=== PATIENT | female | born 1975 | race American Indian/Alaskan Native ===

== ENCOUNTER 2016-11-04 11:27 | Emergency (ER) | payer MEDICAID, OTHER ==
[2016-11-04 11:41] VITALS: BP 129/60
[2016-11-04] MEDS ORDERED: Ketorolac 30 MG/ML SDV IM ONE (12:29)
[2016-11-04] MEDS ORDERED: Cyclobenzaprine 10 MG Tab PO ONE (12:29)
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
== END 2016-11-04 12:49 | disposition home or self-care (01) ==
LOC: DL.ED 11:27
DX: S39.012A Strain of muscle, fascia and tendon of lower back, initial encounter (principal); F17.210 Nicotine dependence, cigarettes, uncomplicated; E66.9 Obesity, unspecified; F32.9 Major depressive disorder, single episode, unspecified; Z98.890 Other specified postprocedural states; W10.8XXA Fall (on) (from) other stairs and steps, initial encounter; Z68.35 Body mass index [BMI] 35.0-35.9, adult
CPT/HCPCS: 96372; 99283; A9270; J1885

== ENCOUNTER 2017-02-10 14:29 | Emergency (ER) | payer MEDICAID, OTHER ==
[2017-02-10 15:13] VITALS: BP 103/56
--- NOTE | 2017-02-10 15:18 | EDM.PDOC ---
ED HPI GENERAL MEDICAL PROBLEM - General Chief Complaint: Lower Extremity Injury/Pain Stated Complaint: TOES ARE INFECTED, [id number] Time Seen by Provider: 02/10/17 15:18 Source of Information: Reports: Patient, RN, RN Notes Reviewed History Limitations: Reports: No Limitations - History of Present Illness INITIAL COMMENTS - FREE TEXT/NARRATIVE: to ER with complaint of painfully possibly infected toes. She states the left pinky toe had an ingrown toenail which has become painful, swollen, and red. No drainage. Right great and 2nd toe had a drawer fall on them a few days ago. Patient states the great toe has bled but not today. 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 Location: Reports: Lower Extremity, Left Quality: Reports: Ache Severity: Mild Improves with: Reports: None Worsens with: Reports: None Associated Symptoms: Reports: No Other Symptoms Right 1-Hallux Pain Score (Numeric/FACES): 7 - Related Data Allergies Allergy/AdvReac Type Severity Reaction Status Date / Time No Known Allergies Allergy Verified 04/18/16 17:01 Home Meds: Home Meds Control Pill 1 tab PO ASDIRECTED 06/10/14 [History] Past Medical History - Past Health History Medical/Surgical History: Denies Medical/Surgical History HEENT History: Reports: None Cardiovascular History: Reports: None Respiratory History: Reports: None Gastrointestinal History: Reports: None Genitourinary History: Reports: None 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 On oxycodone for back and chest pain Psychiatric History: Reports: None, Bipolar Endocrine/Metabolic History: Reports: Obesity/BMI 30+ Hematologic History: Reports: None Immunologic History: Reports: None Oncologic (Cancer) History: Reports: None Dermatologic History: Reports: None - Infectious Disease History Infectious Disease History: Reports: Chicken Pox - Past Surgical History Head Surgeries/Procedures: Reports: None Musculoskeletal Surgical History: Reports: Other (See Below) Other Musculoskeletal Surgeries/Procedures:: foot surgery Social & Family History - Family History Family Medical History: Noncontributory - Tobacco Use Smoking Status *Q: Current Some Day Smoker Years of Tobacco use: 10 Packs/Tins Daily: 0.1 Second Hand Smoke Exposure: Yes - Caffeine Use Caffeine Use: Reports: Coffee - Alcohol Use Days Per Week of Alcohol Use: 0 - Recreational Drug Use Recreational Drug Use: No - Sexual History Sexual History: Reports: Sexually Active - Living Situation & Occupation Living situation: Reports: , with Family Review of Systems - Review of Systems Review Of Systems: ROS reveals no pertinent complaints other than HPI. ED EXAM, GENERAL - Physical Exam Exam: See Below Exam Limited By: No Limitations General Appearance: Alert, WD/WN, No Apparent Distress Eye Exam: Bilateral Eye: Normal Inspection Ears: Normal External Exam, Normal Canal, Hearing Grossly Normal, Normal TMs Nose: Normal Inspection, Normal Mucosa, No Blood Throat/Mouth: Normal Inspection, Normal Lips, Normal Teeth, Normal Gums, Normal Oropharynx, Normal Voice, No Airway Compromise Head: Atraumatic, Normocephalic Neck: Normal Inspection, Supple, Non-Tender, Full Range of Motion Respiratory/Chest: No Respiratory Distress, Lungs Clear, Normal Breath Sounds, No Accessory Muscle Use, Chest Non-Tender Cardiovascular: Normal Peripheral Pulses, Regular Rate, Rhythm, No Edema, No Gallop, No JVD, No Murmur, No Rub GI/Abdominal: Normal Bowel Sounds, Soft, Non-Tender, No Organomegaly, No Distention, No Abnormal Bruit, No Mass (Female) Exam: Deferred Rectal (Female) Exam: Deferred Back Exam: Normal Inspection, Full Range of Motion, NT Extremities: Normal Inspection, Normal Range of Motion, Non-Tender, Normal Capillary Refill, No Pedal Edema Neurological: Alert, Oriented, CN II-XII Intact, Normal Cognition, Normal Gait, Normal Reflexes, No Motor/Sensory Deficits Psychiatric: Normal Affect, Normal Mood Skin Exam: Other (left 5th toe) Course - Vital Signs Last Recorded V/S: Last Vital Signs Temp 97.6 F 02/10/17 15:12 Pulse 76 02/10/17 15:12 Resp 16 02/10/17 15:12 BP 103/56 L 02/10/17 15:12 Pulse Ox 98 02/10/17 15:12 Departure - Departure Time of Disposition: 15:38 Disposition: Home, Self-Care 01 Condition: Good Clinical Impression: Ingrowing toenail with infection, Infection of toenail - Discharge Information Instructions: Ingrown Toenail Forms: ED Department Discharge Additional Instructions: RX: Cephalexin 500mg. RX: Bactroban ointment. Change dressing tid. Call for podiatry appointment with Dr. Blandon.
== END 2017-02-10 15:49 | disposition home or self-care (01) ==
LOC: DL.ED 14:29
DX: L60.0 Ingrowing nail (principal); L08.9 Local infection of the skin and subcutaneous tissue, unspecified; F31.9 Bipolar disorder, unspecified; E66.9 Obesity, unspecified; F17.210 Nicotine dependence, cigarettes, uncomplicated; Z98.890 Other specified postprocedural states; Z68.34 Body mass index [BMI] 34.0-34.9, adult
CPT/HCPCS: 99283

== ENCOUNTER 2017-02-23 17:46 | Emergency (ER) | payer OTHER ==
[2017-02-23 18:47] VITALS: BP 126/62
[2017-02-23] MEDS ORDERED: Acetaminophen/HYDROcodone 325-10 MG Tab PO ONE (19:48)
--- NOTE | 2017-02-23 19:51 | EDM.PDOC ---
ED HPI GENERAL MEDICAL PROBLEM - General Chief Complaint: Lower Extremity Injury/Pain Stated Complaint: INJURED TOE Time Seen by Provider: 02/23/17 19:49 Source of Information: Reports: Patient History Limitations: Reports: No Limitations - History of Present Illness INITIAL COMMENTS - FREE TEXT/NARRATIVE: toe was healing well after ABX then child jumped onto it accidentally few days ago. looks worse. 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 On oxycodone for back and chest pain Psychiatric History: Reports: None, Bipolar Endocrine/Metabolic History: Reports: Obesity/BMI 30+ Hematologic History: Reports: None Immunologic History: Reports: None Oncologic (Cancer) History: Reports: None Dermatologic History: Reports: None - Infectious Disease History Infectious Disease History: Reports: Chicken Pox - Past Surgical History Head Surgeries/Procedures: Reports: None Musculoskeletal Surgical History: Reports: Other (See Below) Other Musculoskeletal Surgeries/Procedures:: foot surgery Social & Family History - Family History Family Medical History: Noncontributory - Tobacco Use Smoking Status *Q: Current Some Day Smoker Years of Tobacco use: 10 Packs/Tins Daily: 1 Second Hand Smoke Exposure: Yes - Caffeine Use Caffeine Use: Reports: Coffee, Tea - Alcohol Use Days Per Week of Alcohol Use: 0 - Recreational Drug Use Recreational Drug Use: No - Sexual History Sexual History: Reports: Sexually Active - Living Situation & Occupation Living situation: Reports: , with Family Review of Systems - Review of Systems Review Of Systems: ROS reveals no pertinent complaints other than HPI. ED EXAM, GENERAL - Physical Exam Exam: See Below Exam Limited By: No Limitations General Appearance: Alert, WD/WN, Mild Distress, Other (pain) Ears: Hearing Grossly Normal Throat/Mouth: Normal Voice, No Airway Compromise Head: Atraumatic Neck: Non-Tender, Full Range of Motion Respiratory/Chest: No Respiratory Distress Cardiovascular: Regular Rate, Rhythm GI/Abdominal: Soft, Non-Tender Extremities: Other (right big toe swollen tender discoloured, NV wnl, gait limited to pain) Neurological: Alert, Oriented, Normal Cognition, No Motor/Sensory Deficits Psychiatric: Tearful Skin Exam: Warm, Dry, Normal Color Lymphatic: No Adenopathy Course - Vital Signs Last Recorded V/S: Last Vital Signs Temp 35.8 C 02/23/17 18:38 Pulse 70 02/23/17 18:38 Resp 17 02/23/17 18:38 BP 126/62 02/23/17 18:38 Pulse Ox 99 02/23/17 18:38 - Orders/Labs/Meds Meds: Medications Discontinued Medications Generic Name Dose Route Start Last Admin Trade Name Freq PRN Reason Stop Dose Admin Hydrocodone Bitart/Acetaminophen 1 tab 02/23/17 19:48 02/23/17 20:44 [place] 325-10 Mg PO 02/23/17 19:49 1 tab ONETIME ONE Administration - Re-Assessments/Exams Free Text/Narrative Re-Assessment/Exam: 02/23/17 21:47 results discussed with pt. Departure - Departure Time of Disposition: 21:47 Disposition: Home, Self-Care 01 Condition: Good Clinical Impression: Contusion of toe of right foot Qualifiers: Encounter type: initial encounter Toe: great toe Damage to nail status: without damage Qualified Code(s): S90.111A - Contusion of right great toe without damage to nail, initial encounter - Discharge Information Instructions: Foot Contusion, [id number] Forms: ED Department Discharge Additional Instructions: 1) elevate foot as much as possible 2) keep wound clean dry covered rx given; vicodin 5/325mg bid prn x 12
== END 2017-02-23 21:52 | disposition home or self-care (01) ==
LOC: DL.ED 17:46
DX: S90.111A Contusion of right great toe without damage to nail, initial encounter (principal); E66.9 Obesity, unspecified; F17.210 Nicotine dependence, cigarettes, uncomplicated; Z98.890 Other specified postprocedural states; Z68.34 Body mass index [BMI] 34.0-34.9, adult; W50.0XXA Accidental hit or strike by another person, initial encounter
CPT/HCPCS: 73660; 99283; A9270

== ENCOUNTER 2017-03-08 17:26 | Emergency (ER) | payer OTHER ==
[2017-03-08] MEDS ORDERED: Albuterol 6.7 GM Inhaler INH ONE ×2 (17:27→19:56)
[2017-03-08 18:22] VITALS: BP 125/54
--- NOTE | 2017-03-08 19:09 | EDM.PDOC ---
ED HPI GENERAL MEDICAL PROBLEM - General Chief Complaint: Respiratory Problem Stated Complaint: LUNGS CONGESTED AND FACE, [id number] Time Seen by Provider: 03/08/17 19:00 Source of Information: Reports: Patient History Limitations: Reports: No Limitations - History of Present Illness INITIAL COMMENTS - FREE TEXT/NARRATIVE: C/o cold sx, congestion and productive cough, sore throat onset Saturday night with runny nose. Notes no known fever. Benadryl and cough medicine at bedtime. Head Pain Score (Numeric/FACES): 3 - Related Data Allergies Allergy/AdvReac Type Severity Reaction Status Date / Time No Known Allergies Allergy Verified 03/08/17 18:16 Home Meds: Home Meds . 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 On oxycodone for back and chest pain Psychiatric History: Reports: None, Bipolar Endocrine/Metabolic History: Reports: Obesity/BMI 30+ Hematologic History: Reports: None Immunologic History: Reports: None Oncologic (Cancer) History: Reports: None Dermatologic History: Reports: None - Infectious Disease History Infectious Disease History: Reports: Chicken Pox - Past Surgical History Head Surgeries/Procedures: Reports: None Musculoskeletal Surgical History: Reports: Other (See Below) Other Musculoskeletal Surgeries/Procedures:: foot surgery, elbow surgery Social & Family History - Family History Family Medical History: Noncontributory - Tobacco Use Smoking Status *Q: Current Some Day Smoker Years of Tobacco use: 10 Packs/Tins Daily: 1 Second Hand Smoke Exposure: Yes - Caffeine Use Caffeine Use: Reports: Coffee, Tea - Alcohol Use Days Per Week of Alcohol Use: 0 - Recreational Drug Use Recreational Drug Use: No - Sexual History Sexual History: Reports: Sexually Active - Living Situation & Occupation Living situation: Reports: , with Family ED ROS GENERAL - Review of Systems Review Of Systems: ROS reveals no pertinent complaints other than HPI. ED EXAM, GENERAL - Physical Exam Exam: See Below Exam Limited By: No Limitations General Appearance: Alert, Mild Distress Eye Exam: Bilateral Eye: EOMI Ears: Normal External Exam, Normal TMs Nose: Other (maxillary sinus tenderness). No: Nasal Drainage Throat/Mouth: Other (mild pharyngeal erythema) Head: Atraumatic, Normocephalic, Sinus Tenderness Neck: Normal Inspection. No: Lymphadenopathy (L) (mild), Lymphadenopathy (R) Respiratory/Chest: No Respiratory Distress, Rhonchi (right), Wheezing Cardiovascular: Regular Rate, Rhythm GI/Abdominal: Soft Extremities: Normal Range of Motion Neurological: Alert, Oriented, Normal Cognition Skin Exam: Warm, Dry, Intact, Normal Color, No Rash Course - Vital Signs Last Recorded V/S: Last Vital Signs Temp 97.3 F 03/08/17 18:02 Pulse 84 03/08/17 18:02 Resp 16 03/08/17 18:02 BP 125/54 L 03/08/17 18:02 Pulse Ox 99 03/08/17 18:02 - Orders/Labs/Meds Meds: Medications Discontinued Medications Generic Name Dose Route Start Last Admin Trade Name Lucía PRN Reason Stop Dose Admin Albuterol Confirm 03/08/17 19:56 03/08/17 20:14 Proventil Hfa Administered 03/08/17 19:57 Not Given Dose 6.7 gm INH .STK-MED ONE Departure - Departure Time of Disposition: 19:51 Disposition: Home, Self-Care 01 Condition: Good Clinical Impression: Bronchitis - Discharge Information Instructions: Acute Bronchitis, [id number] Referrals: PCP,None [Primary Care Provider] - Forms: ED Department Discharge Additional Instructions: increase fluids tylenol or ibuprofen for discomfort OTC muccinex 600mg twice daily or robitussin per label instructions albuterol inhaler 2 puffs every 4 hours as needed for cough and wheezing
== END 2017-03-08 20:01 | disposition home or self-care (01) ==
LOC: DL.ED 17:26
DX: J40 Bronchitis, not specified as acute or chronic (principal); E66.9 Obesity, unspecified; F17.210 Nicotine dependence, cigarettes, uncomplicated
CPT/HCPCS: 71020; 87081; 87430; 99283; A9270-GY

== ENCOUNTER 2017-10-20 23:54 | Inpatient (IN) | payer MEDICAID, OTHER ==
[2017-10-21] MEDS ORDERED: Lactated Ringers 1,000 ML IV SCH ×2 (01:10→11:00)
[2017-10-21] MEDS ORDERED: Sodium Chloride 0.9% 10 ML Syringe FLUSH PRN ×2 (01:10→11:00)
[2017-10-21] MEDS ORDERED: Tranexamic Acid 1,000 MG in Sodium Chloride 0.9% 100 ML IV PRN ×5 (04:04→11:00)
[2017-10-21] MEDS ORDERED: Oxytocin/Normal Saline 30 UNIT/500 ML BAG IV SCH (04:15)
--- NOTE | 2017-10-21 08:04 | HP ---
PATIENT IDENTIFICATION: Tyra Connelly is a 42-year-old, G10, P8-1-0-9 intrauterine at 38 and 1/7 weeks complicated by gestational diabetes mellitus with questionable control, recently diagnosed gestational hypertension versus transient hypertension with history of shoulder dystocia x2, and history of with a clavicle fracture requests for primary low transverse with GBS positive status that presents with back pain and increased blood sugars. HISTORY OF PRESENT ILLNESS: The patient was admitted on 10/20/2017 with complaints of back pain. She describes back pain starting on Saturday evening, located in the lower back, described as constant in nature, severe enough that it has kept her awake at times. She is unsure if she has had contractions associated with this and she has the above history and after discussion has requested a primary low transverse , which could be warranted with patient having history of shoulder dystocia x2 and last infant with clavicle fracture. She also has a history of precipitous delivery and gestational diabetes mellitus not controlled with previous pregnancies. She has had limited care with what appears to be 4 total OB visits with [address] [facility] and 2 at [facility]. Records were called for and reviewed as below, and supplemented by patient history. ANTEPARTUM LABORATORY DATA: ABO blood type O positive. Negative antibody. Rubella immune. RPR nonreactive. Negative hepatitis B surface antigen. Hep C antibody recently positive 13 days ago, with a quant RNA being negative and hep C antibody being negative at [facility]. Negative HIV, GC, chlamydia within normal Pap, and hepatitis B surface antigen is negative. Rare BV on wet prep. GBS was positive earlier this month. OB HISTORY: 1. On 09/11/2013: A 37 and 2/7 weeks, delivered female, spontaneous vaginal delivery, weighing 4896 g, complicated by gestational diabetes mellitus, not controlled, induced to macrosomia and sugars with clavicle fracture noted per patient, precipitously delivered via spontaneous vaginal delivery by Dr. Schulz at [facility] in [place]. 2. On 07/24/2012: A 40 and 1/7 weeks female, delivered spontaneous vaginal delivery, weighing 4990 g complicated by positive THC and narcotics on urine drug screen. 3. In 2009: A 39 week, 3997 g female, delivered spontaneous vaginal delivery, shoulder dystocia, impaired glucose tolerance and THC use by Dr. Pederson. 4. In 2004: A 35 and 6/7 weeks male, delivered spontaneous vaginal delivery, weighing 3670 g. For that visit she came in the ER with back pain and delivered vaginally. 5. In 2003: A 39 and 1/7 weeks, delivered spontaneous vaginal delivery, 4160 g, female, GBS positive status. 6. In 2000: A 40 week female, spontaneous vaginal delivery, 3912 g. 7. In 1998: A 39 and 3/7 weeks, delivered male, spontaneous vaginal delivery weighing 4252 g with a first-degree posterior vaginal wall laceration. 8. In 1996: Delivered at 39 weeks, male, spontaneous vaginal delivery, weighing 3912 g with second-degree midline laceration by Dr. Escalante. 9. In 1994: A 40 weeks, delivered via vacuum-assisted vaginal delivery, female, 3997 g with fourth-degree laceration. ALLERGIES: None. MEDICATIONS: vitamins. PAST MEDICAL/PAST SURGICAL HISTORY: Remarkable for: 1. Hyperthyroidism in 2012 . TSH normal during this within the last month. 2. History elbow fracture in 1981. 3. Gestational diabetes mellitus. 4. Depression in 2000. 5. Degenerative disk disease diagnosed in 2013. 6. Cervical dysplasia with history of LEEP in the past. 7. History of panic attacks. 8. Obesity. 9. Vitamin D deficiency. PAST SURGICAL HISTORY: 1. LEEP in 2002. 2. Foot surgery. 3. Bilateral bunion surgery. 4. Elbow fracture surgery on the right in 1981 with open reduction internal fixation. FAMILY HISTORY: Mother from alcoholism and liver disease. Father had diabetes, heart disease, and alcoholism. Paternal aunt with breast cancer x3. Maternal uncle with stroke. Multiple births with twins on maternal side and diabetes on maternal side. Negative family history of defects, anesthesia problems, or bleeding problems. SOCIAL HISTORY: The patient describes being a light tobacco smoker. No smokeless tobacco. No alcohol or drug use. She lives in [place] with 8 children. Father of baby, Rebel Tom is semi involved with the patient and children. 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 REVIEW OF SYSTEMS: The patient denies any problems with bowel or bladder habits. She denies any headaches, visual changes, or upper abdominal pain. She does note some increasing swelling in lower extremities. Otherwise, she denies any spotting, bleeding, or leaking. She questions if she has any contractions. Otherwise, review of systems was fully reviewed and felt to be noncontributory. OBJECTIVE: Vital Signs: Initial vitals 144/67, heart rate 80. Recheck blood pressure 142/67 with temperature 98.1. Appearance: Female appears stated age, minimally in pain with her back pain, but able to sleep through some of them over serial examinations. No obvious distress. HEENT: Head is atraumatic. EOMs intact. PERRLA. No scleral icterus. No obvious otorhinorrhea. Mucous membranes are moist. Neck: No obvious tenderness. Lungs: Distant, but clear to auscultation. No increased work of breathing. Heart: S1 and S2. Regular rate and rhythm. Abdomen: Gravid, Koko's indeterminate. Nontender and nondistended. Bowel sounds positive. No other organomegaly, pulsatile masses, or obvious hernias. No rebound, rigidity, or guarding. Genitourinary: Normal external female genitalia. Normal position and presentation of urethra. Initial vaginal exam done by nurse did reveal her cervix to be inner os close, soft, ballotable, -3. Over approximately a 4 hour period, she has changed to 2.5 cm, 25% effaced, -2 station, and bag of water was felt. Extremities: 1 to 2+ pitting edema to proximal tibia. Deep tendon reflexes 2 to 3/4 bilaterally and symmetric in lower extremities. Psychiatric: Mood and affect are congruent. Judgment and insight are intact. Skin: Without any cyanosis, clubbing, or jaundice. LABS/INVESTIGATIONS: Initial blood sugar while over 2 hours after she last ate was 151. White cell count 9, hemoglobin 9.2, platelets 246. HELLP labs/PIH panel remarkable for creatinine low at 0.5, ALT low at 8. Urinalysis remarkable for 30 protein, 100 glucose, and protein-creatinine ratio 0.26. Her UDS is negative. heart tones at current time of dictation are in the 130s to 140s baseline range with accelerations all way up into the 170s to 180s. Tocometer reveals possibility of occasional contraction. ASSESSMENT AND PLAN: 1. Intrauterine at 38 and 1/7 weeks, confirmed with 22 and 4/7 week ultrasound. 2. Contractions with cervical change. These appear mild at this point in time may be early labor. 3. Gestational diabetes mellitus--suspect uncontrolled based on her initial sugar here while over 2 hours postprandial. 4. Gestational versus transient hypertension over serial evaluations. She had one more elevated blood pressure 140/69, approximately at 2:45. Rest of them have been on the upper ends of normal. Preeclampsia labs are minimally concerning for a protein-creatinine ratio nearing preeclampsia range at 0.26. 5. History of shoulder dystocia x2. 6. History of infant with a clavicle fracture with her last delivery. 7. Request for primary low transverse and candidate for primary low transverse due to the above. 8. Group B streptococcus positive. 9. History of gestational diabetes mellitus with previous pregnancies. 10.History of LEEP. 11.Advanced maternal age. 12.Hepatitis C antibody positive with negative quant RNA on 10/08/2017. 13.History of precipitous deliveries. 14.G10, P8-1-0-9. 15.Limited care and at risk of not following up as instructed. PLAN: I did discuss with the patient concerns with her suspected gestational hypertension, her contractions, cervical change, as well as gestational diabetes mellitus that is suspected to be uncontrolled. In light of all these findings I have discussed with her and shared decision was made to proceed with primary low transverse . I did discuss with her risks, benefits, alternatives, and complications of , but limited to infection, bleeding, damage to internal organs such as bowel, bladder, tubes, uterus, sometimes fetus, rarely needing a blood transfusion or further surgery, and rare maternal or . She understands and agrees and wished to proceed. Verbal and written consent obtained and questions were answered. Due to her having a large meal the previous evening and not being in suspected active labor as well as concerns with proper staffing, we will proceed with primary low transverse at start time of approximately 11:30 a.m. In the meantime, continues monitoring will be done as well as following blood pressures closely. Abdominal scrub will be done now and prior to surgery. The patient understands and agrees the above treatment plan and we will follow blood sugar little later this morning and prior to surgery. I did discuss with her potential issues with her baby as well as need to follow baby's breathing status as well as sugars closely. She understands and agrees the above treatment plan. MOD /[id number] MTDD
--- NOTE | 2017-10-21 08:12 | OBOUT ---
DATE: 10/20/2017 DATE AND TIME OF NST: Date: 10/20/2017 Time: 0001 hours to 0021 hours. REASON FOR NST: 1. Intrauterine at 38 and 1/7 weeks, confirmed with 22 and 4/7-week ultrasound. 2. History of shoulder dystocia x2. 3. Gestational hypertension versus transient hypertension. 4. History of infant with clavicle fracture. 5. Request for primary low transverse and a candidate for primary low transverse due to the above. 6. Group B streptococcus positive. 7. History of gestational diabetes mellitus. 8. Advanced maternal age. 9. Hep C antibody positive suspected. 10.History of LEEP. 11.G10, P8-1-0-9. 12.Impaired glucose tolerance with the patient not presenting for her 3-hour GTT. NST INTERPRETATION: During this time period, heart tone baseline is approximately 135 to 140, and there are at least two 15 x 15 beats per minute accelerations, making this strip reactive. It is also noted to be reassuring. Tocometer reveals no obvious evidence of contractions. Blood pressure 144/67, heart rate 80. Recheck 142/67 with heart rate 82. ASSESSMENT: 1. Nonstress test, reactive and reassuring. 2. Tocometer without contractions. PLAN: At the current time of dictation, waiting on labs. We will do a PIH panel. We will follow her blood pressures closely as she is 37+ weeks and has elevated blood pressures. Delivery maybe warranted, but we will follow her blood pressures closely at this point in time and follow thereafter. Awaiting labs at current time of dictation. [facility] /[id number]
--- NOTE | 2017-10-21 08:15 | PN ---
DATE: 10/21/2017 SUBJECTIVE: The patient is easily awoken describing her back pain worse when she gets up and moves around. OBJECTIVE: Vital Signs: Blood pressure 128/67, heart rate 81. She did shift while we were in the room and maternal heart tones were suspected to be picked up during this time in the 90s. At current time of dictation, they are in the 130s to 140s baseline with accelerations into the 170s to 180s. Tocometer reveals occasional contractions. Vaginal exam, during this time reveals to be 2.5 cm dilated. Bag of water is felt, -2 station with vertex suspected. ASSESSMENT AND PLAN: Intrauterine at 38 and 1/7 weeks, confirmed with 22 and 4/7 week ultrasound with contractions and cervical change, gestational diabetes mellitus, suspect uncontrolled with suspicion of gestational hypertension, history of shoulder dystocia x2, and last with clavicle fracture. She is a candidate for primary low transverse as above. This was discussed with the patient. Please see H and P as well. She is being admitted. Abdominal scrub will be applied. Type and screen has been ordered. Urine drug screen was done and it is negative, and at this point in time, we will follow clinically and closely and plan for delivery with primary low transverse at approximately 11:30 a.m. The patient understands and agrees with the above treatment plan. [facility] /[id number]
[2017-10-21] MEDS ORDERED: ceFAZolin 2 GM in Premix Bag 1 BAG IV ONE (08:51)
[2017-10-21 10:13] LABS: CHLORIDE,CL 107 mmol/L (101-111); SODIUM,NA 134 mmol/L (135-145)
[2017-10-21] MEDS: Lactated Ringers 1,000 ML IV SCH ×3 (10:17→22:11)
[2017-10-21] MEDS ORDERED: Citric Acid/Sodium Citrate Solution 30 ML Cup PO ONE (10:18)
[2017-10-21] MEDS ORDERED: ePHEDrine 50 MG/ML SDV IVPUSH PRN (11:00)
[2017-10-21] MEDS ORDERED: Methylergonovine 0.2 MG/1 ML Amp IM PRN (11:00)
[2017-10-21] MEDS ORDERED: diphenhydrAMINE 50 MG/ML SDV IVPUSH PRN (11:00)
[2017-10-21] MEDS ORDERED: Naloxone 2 MG/2 ML Syringe IVPUSH PRN (11:00)
[2017-10-21] MEDS ORDERED: Ketorolac 30 MG/ML SDV IVPUSH SCH (11:00)
[2017-10-21] MEDS ORDERED: Acetaminophen 325 MG Tab PO PRN (11:00)
[2017-10-21] MEDS ORDERED: Ondansetron 4 MG/2 ML SDV IV PRN (11:00)
[2017-10-21] MEDS ORDERED: Misoprostol 400 MCG (4 X 100 MCG TAB) RECTAL PRN (11:00)
[2017-10-21] MEDS ORDERED: Carboprost Tromethamine 250 MCG/1 ML Amp IM ONE (11:00)
[2017-10-21] MEDS ORDERED: Acetaminophen/oxyCODONE 325-5 MG Tab PO PRN (11:00)
[2017-10-21] MEDS: Simethicone 80 MG Tab.Chew PO SCH ×3 (13:20→22:09)
[2017-10-21] MEDS: Prenatal Multivitamin with Calcium/Folic Acid/Iron Tab PO SCH (13:20)
[2017-10-21] MEDS: Ferrous Sulfate 325 MG Tab PO SCH (13:20)
[2017-10-21] MEDS ORDERED: Oxytocin/Normal Saline 30 UNIT/500 ML BAG IV ONE (13:40)
[2017-10-21] MEDS ORDERED: Dexamethasone 4 MG/ML SDV IV ONE (15:53)
[2017-10-21] MEDS ORDERED: Bupivacaine 0.75%/D5W 2 ML Amp INJECT ONE (15:53)
[2017-10-21] MEDS ORDERED: Morphine PF 1 MG/ML Amp ONE (15:53)
[2017-10-21] MEDS ORDERED: Ketorolac 30 MG/ML SDV IVPUSH ONE (15:53)
[2017-10-21] MEDS ORDERED: Midazolam 1 MG/ML 2 ML SDV IV ONE (15:53)
[2017-10-21] MEDS ORDERED: Ondansetron 4 MG/2 ML SDV IV ONE (15:53)
[2017-10-21] MEDS: Ketorolac 30 MG/ML SDV IVPUSH SCH ×2 (17:45→23:58)
[2017-10-21] MEDS: Docusate Sodium 100 MG Cap PO PRN (22:10)
[2017-10-22] MEDS: Ketorolac 30 MG/ML SDV IVPUSH SCH (06:03)
[2017-10-22] MEDS ORDERED: Ibuprofen 800 MG Tab PO PRN (07:00)
--- NOTE | 2017-10-22 07:20 | OR ---
DATE: 10/21/2017 PREOPERATIVE DIAGNOSES: 1. Intrauterine at 38 and 2/7 weeks, confirmed with 22 and 4/7-week ultrasound. 2. Contractions with cervical change upon admit. 3. Gestational diabetes mellitus, suspect uncontrolled. 4. Gestational hypertension versus transient hypertension. 5. History of shoulder dystocia x2 with previous deliveries. 6. History of infant with clavicle fracture with last delivery. 7. Request for primary low transverse section with the patient being a candidate for primary low transverse section due to the above. 8. History of precipitous delivery. 9. Group B streptococcus positive status. 10.History of gestational diabetes mellitus. 11.History of loop electrosurgical excision procedure. 12.Advanced maternal age. 13.Hepatitis C antibody positive with negative quant RNA on 10/08/2017. 14.Anemia of with hemoglobin 9.2. 15.Glucose of 151 well over two hours postprandial upon admission. 16.G 10, P8-1-0-9. POSTOPERATIVE DIAGNOSES: 1. Intrauterine at 38 and 2/7 weeks, confirmed with 22 and 4/7-week ultrasound, delivered. 2. Contractions with cervical change upon admit. 3. Gestational diabetes mellitus, suspect uncontrolled. 4. Gestational hypertension versus transient hypertension. 5. History of shoulder dystocia x2 with previous deliveries. 6. History of infant with clavicle fracture with last delivery. 7. Request for primary low transverse section with the patient being a candidate for primary low transverse section due to the above. 8. History of precipitous delivery. 9. Group B streptococcus positive status. 10.History of gestational diabetes mellitus. 11.History of loop electrosurgical excision procedure. 12.Advanced maternal age. 13.Hepatitis C antibody positive with negative quant RNA on 10/08/2017. 14.Anemia of with hemoglobin 9.2. 15.Glucose of 151 well over two hours postprandial upon admission. 16.G 10, P8-1-0-9. PROCEDURES PERFORMED: Nonstress test followed by primary low transverse section. ASSISTANTS: 1. Kathrine Mayen MD. 2. Chen Guerin NP, student. ANESTHESIA: Spinal. ESTIMATED BLOOD LOSS: 750 mL. INTRAVENOUS FLUIDS: 1000 mL of lactated Ringer's, 350 mL of Pitocin. URINE OUTPUT: 110 mL and clear yellow. START: 1128 hours. UTERINE INCISION: 1131 hours. DELIVERY: 1132 hours. STOP: 1157 hours. FINDINGS: Male, scores 8 and 9, weight pending. DESCRIPTION OF PROCEDURE IN DETAIL: After proper consent was obtained, the patient was brought to the operating room where spinal anesthetic was administered. A Antoine was placed in the preop under sterile conditions. Abdomen was prepped and draped in normal sterile fashion. The patient was placed in supine position with left lateral tilt. A skin incision was made over lower abdomen in transverse Pfannenstiel-type fashion. This was scored in the midline at the fascial level. Subcutaneous tissue was raked laterally with Bass retractors, and the fascial incision was extended in transverse fashion using curved Aguayo's. Woodrow clamps x2 were used to grasp the superior aspect of the rectus fascia, and rectus muscles were dissected from the fascia using sharp and blunt technique. In a similar fashion, Woodrow clamps x2 were used to grasp the inferior portion of the incision, and rectus and pyramidalis muscles were dissected from the fascia using sharp and blunt technique. Rectus muscles were in the midline with blunt technique. Abdominal cavity was entered in blunt technique. The incision was extended superiorly and inferiorly with blunt technique. Nicholas O large retractor was then introduced and used. The vesicouterine peritoneum was identified and incised in transverse fashion with Metzenbaum scissors. A bladder flap was made digitally. A curvilinear incision was made on the lower uterine segment at 1131 hours. Uterus was entered sharply. The uterine incision was then extended in transverse fashion using blunt technique. Bulging bag of water was noted and ruptured with Allis clamps. Clear fluid returned. vertex was then delivered through the incision followed by rest of the infant with minimal difficulty. Mouth and nares were suctioned on the patient's lap. Cord was doubly clamped and cut, and the was brought to the team. Then, approximately 10 mL of cord blood was obtained for labs. Placenta was then delivered with gentle cord traction and fundal massage. Uterine cavity was cleared of all blood clots and debris with a lap sponge. Smith clamps were used to grasp the uterine incision. This was closed in a running locked fashion and tied at the lateral margin with 1-0 Vicryl. Second imbricating layer was applied with 1-0 Vicryl tied at lateral margins. Bleeding at right portion of the incision was noted and a [id number] stitch was placed with an intermittent running stitch over this area. First inspection of the uterus revealed hemostasis. Nicholas O retractor was then removed; and paracolic gutters were then cleared of all blood clots, and debris with lap sponge. Anterior Cul-de-sac was then irrigated copiously, and all blood clots and debris were removed. Final inspection of the uterine incision and anterior cul-de-sac revealed hemostasis. Rectus muscles were then reapproximated in midline with [id number] stitch using 1-0 Vicryl. Subfascial tissue was found to be hemostatic. Fascia was closed in a running fashion and tied at lateral margins with 0 looped PDS. Subcutaneous tissue was irrigated copiously. Hemostasis reassured. Skin was reapproximated with medium sagrario. Sterile Aquacel dressing was applied. Uterine fundus was firm and massaged at the conclusion of the case, -2 below umbilicus. No immediate complications were noted. Sponge, lap, and needle counts were correct. The patient received 2 g Ancef preoperatively, Pitocin per protocol, and will receive Toradol at the conclusion of the case for pain control. Mother and are currently stable at the time of dictation. [facility] /[id number] TOMMY
[2017-10-22] MEDS: Acetaminophen/oxyCODONE 325-5 MG Tab PO PRN ×4 (09:06→21:22)
[2017-10-22] MEDS: Simethicone 80 MG Tab.Chew PO SCH ×4 (09:06→21:23)
[2017-10-22] MEDS: Ferrous Sulfate 325 MG Tab PO SCH (09:06)
[2017-10-22] MEDS: Prenatal Multivitamin with Calcium/Folic Acid/Iron Tab PO SCH (09:06)
[2017-10-22] MEDS: Docusate Sodium 100 MG Cap PO PRN ×2 (09:06→21:23)
--- NOTE | 2017-10-22 10:28 | PN ---
DATE: 10/22/2017 SUBJECTIVE: The patient is tolerating p.o., has no flatus. Antoine is in place. Has sat up on the edge of the bed. Denies any chest pain, shortness of breath, or lightheadedness. OBJECTIVE: Vital Signs: Temperature 99, heart rate 62, blood pressure 115/56, respiratory rate 18. I's and O's have been adequate. Lungs: Clear to auscultation bilaterally. Heart: S1 and S2. Regular rate and rhythm. Abdomen: Obese. Pelvic: Uterus is firm. Fundus is felt. Aquacel dressing is dry and intact. Extremities: DEVON hoses are on. Genitourinary: Antoine is in place. LABORATORY DATA: White cell count 12.2, hemoglobin 7.1, platelets 233 with pre- delivery hemoglobin being 9.2. ASSESSMENT: 1. Postoperative day #1, status post primary low transverse with 2- layer uterine closure. 2. Gestational diabetes mellitus during this , uncontrolled, currently delivered. 3. Anemia of acute blood loss with hemoglobin dropping down to 7.1 today. The patient is currently asymptomatic. We will follow CBC tomorrow. Follow up for any symptoms. May need to consider further evaluation and treatment if need be. PLAN: Otherwise, we will continue to follow up closely. The patient understands and agrees with the above treatment plan. [facility] /[id number]
[2017-10-22] MEDS: Ibuprofen 800 MG Tab PO PRN ×2 (14:28→23:27)
[2017-10-23] MEDS: Acetaminophen/oxyCODONE 325-5 MG Tab PO PRN ×5 (01:33→19:21)
[2017-10-23] MEDS: Prenatal Multivitamin with Calcium/Folic Acid/Iron Tab PO SCH (09:33)
[2017-10-23] MEDS: Simethicone 80 MG Tab.Chew PO SCH ×4 (09:33→21:04)
[2017-10-23] MEDS: Docusate Sodium 100 MG Cap PO PRN ×2 (09:34→21:04)
[2017-10-23] MEDS: Ferrous Sulfate 325 MG Tab PO SCH (09:53)
--- NOTE | 2017-10-23 12:49 | PN ---
DATE: 10/23/2017 SUBJECTIVE: Postoperative day #2, status post primary low transverse section. Concerns per the patient include "itching all over" throughout the night. She states that the nurses did give her some Benadryl, and this did help with the itching. The patient also notes that she has had a headache on and off, but denies any visual symptoms. No other concerns per the patient and no concerns per nursing staff. She feels that her pain is well controlled on current medications. She denies fevers or chills, shortness of breath or chest pain, nausea or vomiting, sharp abdominal pains, lightheadedness or dizziness, or erythema or tenderness in any extremity. She does note some swelling bilaterally in her upper and lower extremities. She is not passing gas and has not yet had a bowel movement. She is ambulating without difficulty and tolerating a general diet. She denies difficulty with urination. She does note moderate lochia. OBJECTIVE: Vital Signs: Temperature 99.2, heart rate 72, blood pressure 116/59, respiratory rate 20, and oxygen saturation 98% on room air. General: Pleasant, in no acute distress. Heart: Regular rate and rhythm. S1 and S2. Lungs: Clear to auscultation bilaterally with normal respiratory effort. Abdomen: Soft, nontender, and nondistended. The uterus is firm and 4 fingerbreadths above the umbilicus. The patient does have a large pannus. The Aquasol dressing is clean and dry without shadowing; however, it is peeling on the left superior side of the dressing and so we will replace it today. Neurologic: No obvious neurologic deficits. Extremities: Trace edema in the lower extremities bilaterally. No erythema or tenderness in any extremity. Skin: Warm, dry, and well perfused. LABORATORY DATA: White blood cells 10.1, hemoglobin 7.8, and platelets 254. ASSESSMENT: 1. Postoperative day #2 status post primary low transverse section with 2-layer uterine closure. 2. Gestational diabetes mellitus during this , uncontrolled, currently delivered. 3. Anemia of acute blood loss with hemoglobin dropping as low as 7.1. Post surgery, it is 7.8 today. She is currently asymptomatic. We will follow up further for any symptoms, and we will consider further evaluation and treatment if need be. PLAN: Continue routine and postoperative cares. Please see orders for further details. We will replace Aquacel dressing today to be left on until staple removal in the clinic. The patient expressed understanding and is in agreement with the above treatment plan, and all of her questions have been answered. We will continue to follow closely and anticipate discharge tomorrow, , 10/24/2017. The history, physical, assessment, and plan are per Dr. Pederson. This note is being scribed for Dr. Pederson. [facility] /[id number]
[2017-10-23] MEDS: Ibuprofen 800 MG Tab PO PRN ×2 (14:40→23:03)
[2017-10-24] MEDS: Acetaminophen/oxyCODONE 325-5 MG Tab PO PRN ×3 (00:12→13:24)
[2017-10-24] MEDS: Ferrous Sulfate 325 MG Tab PO SCH (08:59)
[2017-10-24] MEDS: Prenatal Multivitamin with Calcium/Folic Acid/Iron Tab PO SCH (08:59)
[2017-10-24] MEDS: Docusate Sodium 100 MG Cap PO PRN (08:59)
[2017-10-24] MEDS: Ibuprofen 800 MG Tab PO PRN (08:59)
[2017-10-24] MEDS: Simethicone 80 MG Tab.Chew PO SCH ×2 (09:01→13:25)
[2017-10-24 14:13] VITALS: BP 152/59
--- NOTE | 2017-10-25 08:16 | DISCH ---
PATIENT ADMITTED ON: 10/20/2017 ADMIT DIAGNOSES: 1. Intrauterine 38 and 1/7 weeks, confirmed with 22 and 4/7 week ultrasound. 2. Contractions with cervical change upon admit. 3. Gestational diabetes mellitus, suspected uncontrol. 4. Gestational hypertension. 5. History of shoulder dystocia x2 with previous deliveries. 6. History of infant with clavicle fractures last delivery. 7. Request for primary low transverse section. Patient being a candidate for primary low transverse section due to the above. 8. History of precipitous deliveries. 9. Group B Streptococcus positive status. 10.History of gestational diabetes mellitus with previous pregnancies. 11.History of LEEP. 12.Advanced maternal age. 13.Hepatitis C antibody test positive with negative quant RNA on 10/08/2017. 14.Anemia of with hemoglobin 9.2 upon admission. 15.Glucose 151 greater than 2 hours postprandial upon admission. 16. 10, para 8-1-0-9. DISCHARGE DIAGNOSES: 1. Intrauterine 38 and 2/7 weeks, confirmed with 22 and 4/7 week ultrasound; delivered. 2. Contractions with cervical change upon admit. 3. Gestational diabetes mellitus, suspected control. 4. Gestational hypertension. 5. History of shoulder dystocia x2 with previous deliveries. 6. History of with clavicle fractures last delivery. 7. Request for primary low transverse section. Patient being a candidate for primary low transverse section due to the above. 8. History of precipitous deliveries. 9. Group B Streptococcus positive status. 10.History of gestational diabetes mellitus with previous pregnancies. 11.History of LEEP. 12.Advanced maternal age. 13.Hepatitis C antibody test positive with negative quant RNA on 10/08/2017. 14.Anemia of with hemoglobin 9.2 upon admission. 15.Glucose 151 greater than 2 hours postprandial upon admission. 16. 10, para 8-1-0-9. 17.Anemia acute blood loss with hemoglobin dropping down to lowest at 7.1 and up to 7.8 on date of discharge. PROCEDURE PERFORMED: NST followed by primary low transverse . HISTORY OF PRESENT ILLNESS: Please see H and P. SUMMARY OF HOSPITAL COURSE: The patient was admitted on the above date with the above diagnoses. She was followed closely. She had contractions with cervical change. Gestational diabetes mellitus suspected with an elevated blood sugar as above and then went on to have gestational hypertension. Due to her history of previous shoulder dystocia x2 and last infant with a clavicle fracture, the patient was requesting a primary low transverse and this was done on 10/21/2017, under spinal with an EBL 750 mL yielding a male with scores 8 and 9, weighing 8 pounds 13 ounce (4010 g). Please see op note for further details. Postop day 1 and 2, please see progress note. Postoperative day #3 date of discharge, the patient tolerating p.o., was ambulating, urinating, passing flatus. PHYSICAL EXAMINATION: Vital Signs: Temperature 97, heart rate 72, blood pressure 108/49, respiratory rate is 20. Lungs: Clear to auscultation bilaterally. Heart: S1 and S2. Regular rate and rhythm. Pelvic: Firm uterus felt. Aquacel dressing which was dry and intact; had minimal shadowing, 3 cm along the dressing, this was changed yesterday. DISCHARGE LABORATORY DATA: White cell count 10.1, hemoglobin 7.8, platelets 254. Exam done seen and agreed with Romain Quevedo MS-III. CONDITION ON DISCHARGE COMPARED TO CONDITION ON ADMISSION: Improved. DISCHARGE INSTRUCTIONS: 1. Diet as tolerated. 2. Activity, no lifting more than 20 pounds. No sit-ups or straining. Pelvic rest next 6 weeks with immediate return to fertility were discussed with the patient in detail. 3. Reasons to return or go to the emergency room was discussed with the patient in detail to include, but not limited to, temperature greater than 100.4, foul-smelling discharge, red or hot breast, or increased vaginal bleeding as well as increasing pain, drainage, redness around the incision. DISCHARGE MEDS: 1. [id number] Tylenol and ibuprofen for pain. 2. Iron sulfate 325 b.i.d. x6 weeks. 3. Percocet 5/325, 1-2 q.6 hours p.r.n., #30, no refills. Discussed the use of these medications, unwanted effects, as well as precautions with driving. FOLLOW UP: Saturday which would be October 29 with 1 of my partners in the clinic for staple removal as well as baby to follow up at the same day. I did discuss with the patient in the interim the reason to return or go to the emergency room in regards to her and importance of followup and ramifications not following up were discussed. [facility] /[id number]
== END 2017-10-24 14:30 | disposition home or self-care (01) | DRG 765 ==
LOC: DL.OBCHECK 23:54 → DL.OB 10-21 04:10 → EEVIPCON 10-21 11:32 → OBSVTOIN 10-21 11:32 → DL.MS 10-22 20:24 → EDSTATUS 10-29 08:00
PROVIDERS: ADMIT Family Medicine; ATTEND Family Medicine
PROC: 10D00Z1 Extraction of Products of Conception, Low, Open Approach (ICD-10-PCS; principal; 2017-10-21)
DX: O24.429 Gestational diabetes mellitus in childbirth, unspecified control (principal); O98.42 Viral hepatitis complicating childbirth; D62 Acute posthemorrhagic anemia; O13.4 Gestational [pregnancy-induced] hypertension without significant proteinuria, complicating childbirth; O36.63X0 Maternal care for excessive fetal growth, third trimester, not applicable or unspecified; O90.81 Anemia of the puerperium; Z37.0 Single live birth; Z3A.38 38 weeks gestation of pregnancy; O99.824 Streptococcus B carrier state complicating childbirth; Z87.59 Personal history of other complications of pregnancy, childbirth and the puerperium; B19.20 Unspecified viral hepatitis C without hepatic coma; O99.214 Obesity complicating childbirth; E66.9 Obesity, unspecified; O99.334 Smoking (tobacco) complicating childbirth; F17.210 Nicotine dependence, cigarettes, uncomplicated; O90.89 Other complications of the puerperium, not elsewhere classified; L29.9 Pruritus, unspecified
CPT/HCPCS: 01961; 36415; 80048; 80305; 81001; 82550; 82565; 82570; 82962; 83615; 84156; 84450; 84460; 84520; 84550; 85025; 85027; 86850; 86900; 86901; 94010; A9270-GY; J0690; J1100; J1200; J1885; J2250; J2274; J2405; J2590; J7120

== ENCOUNTER 2019-03-06 20:56 | Emergency (ER) | payer MEDICAID, OTHER ==
--- NOTE | 2019-03-06 21:17 | EDM.PDOC ---
ED HPI GENERAL MEDICAL PROBLEM - General Stated Complaint: NECK PAIN Time Seen by Provider: 03/06/19 21:05 Source of Information: Reports: Patient History Limitations: Reports: No Limitations - History of Present Illness INITIAL COMMENTS - FREE TEXT/NARRATIVE: This 43 yo female patient reports to the ED with neck pain. The patient reports her neck pain started last night after she felt a "pop" in her neck. The patient reports she did take ibuprofen this morning, but has continued to have pain. The patient reports a history of c-spine fractures which increased her concerns. 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 On oxycodone for back and chest pain Psychiatric History: Reports: Anxiety, Bipolar, Depression Endocrine/Metabolic History: Reports: Hyperthyroidism, Obesity/BMI 30+ Hematologic History: Reports: Other (See Below) Other Hematologic History: + hep C, vit D def Immunologic History: Reports: None Oncologic (Cancer) History: Reports: None Dermatologic History: Reports: None - Infectious Disease History Infectious Disease History: Reports: Chicken Pox, Hepatitis C - Past Surgical History Head Surgeries/Procedures: Reports: None Female Surgical History: Reports: LEEP Musculoskeletal Surgical History: Reports: Other (See Below) Other Musculoskeletal Surgeries/Procedures:: foot surgery, elbow surgery Social & Family History - Family History Family Medical History: Noncontributory - Caffeine Use Caffeine Use: Reports: Coffee - Sexual History Sexual History: Reports: Sexually Active - Living Situation & Occupation Living situation: Reports: , with Family ED ROS GENERAL - Review of Systems Review Of Systems: ROS reveals no pertinent complaints other than HPI. ED EXAM, UPPER BACK/NECK PAIN - Physical Exam Exam: See Below Exam Limited By: No Limitations General Appearance: Alert, WD/WN, Mild Distress Eye Exam: Bilateral Eye: EOMI, Normal Inspection, PERRL Ears Exam: Normal External Exam, Normal Canal, Hearing Grossly Normal, Normal TMs Nose Exam: Normal Inspection, Normal Mucousa, No Blood Throat/Mouth Exam: Normal Inspection, Normal Lips, Normal Teeth, Normal Gums, Normal Oropharynx, Normal Voice, No Airway Compromise Head Exam: Atraumatic, Normocephalic Neck Exam: Limited Range of Motion, Painful Range of Motion, Tender Lateral ( bilaterally) Nexus Criteria: No: Posterior, Midline Cervical Tenderness, Evidence of Intoxication, Altered Level of Consciousness, Focal Neurological Deficit, Painful Distraction Injuries Cardiovascular/Respiratory: Regular Rate, Rhythm, No M/R/G, Normal Peripheral Pulses, No JVD, Normal Breath Sounds, No Respiratory Distress GI/Abdominal: Normal Bowel Sounds, Soft, Non-Tender, No Organomegaly, No Distention, No Abnormal Bruit, No Mass (Female) Exam: Deferred Rectal (Female) Exam: Deferred Back Exam: Normal Inspection, Full Range of Motion, NT Extremities: Normal Inspection, Normal Range of Motion, Non-Tender, No Pedal Edema, Normal Capillary Refill 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, No Motor/Sensory Deficits, Alert, Normal Mood/Affect, Oriented x 3 Psychiatric: Normal Affect, Normal Mood Skin Exam: Normal Color, Warm/Dry Lymphatic: No Adenopathy Course - Vital Signs Last Recorded V/S: Last Vital Signs Temp 36.4 C 03/06/19 21:08 Pulse 121 H 03/06/19 21:08 Resp 16 03/06/19 21:08 BP 126/75 03/06/19 21:08 Pulse Ox 100 03/06/19 21:08 - Radiology Interpretation Free Text/Narrative:: PROCEDURE INFORMATION: Exam: CT Cervical Spine Without Contrast Exam date and time: 03/06/2019 9:27 PM Clinical history: 43 years old, female; Other: Pain TECHNIQUE: Imaging protocol: Computed tomography images of the cervical spine without contrast. Radiation optimization: All CT scans at this facility use at least one of these dose optimization techniques: automated exposure control; mA and/or kV adjustment per patient size (includes targeted exams where dose is matched to clinical indication); or iterative reconstruction. COMPARISON: CT Cervical Spine wo Cont 03/19/2018 12:49 PM FINDINGS: Vertebrae: No acute fracture. Normal alignment. Vertebral body heights preserved. Postoperative change. C5-C7 anterior discectomy and fusion. Discs/Spinal canal/Neural foramina: Typical for age. Soft tissues: Unremarkable. Lungs: Lung apices are unremarkable as visualized. IMPRESSION: No acute findings. Thank you for allowing us to participate in the care of your patient. Dictated and Authenticated by: Bryant Person MD Departure - Departure Time of Disposition: 22:02 Disposition: Home, Self-Care 01 Condition: Fair Clinical Impression: Neck muscle strain Qualifiers: Encounter type: initial encounter Qualified Code(s): S16.1XXA - Strain of muscle, fascia and tendon at neck level, initial encounter - Discharge Information *PRESCRIPTION DRUG MONITORING PROGRAM REVIEWED*: Not Applicable *COPY OF PRESCRIPTION DRUG MONITORING REPORT IN PATIENT TAVO: Not Applicable Instructions: Cervical Sprain, [id number] Forms: ED Department Discharge Care Plan Goals: The patient was advised of the examination and CT results during the visit. The patient was given an injection of Toradol while in the ED. The patient was discharged with a script for Toradol (10 mg) #20 to take 1 by mouth every 6 hours and Flexeril (10 mg) #8 to take 1 by mouth at bedtime as needed. If the patient has any additional symptoms or concerns, the patient should either return to the emergency department or visit her primary care facility.
[2019-03-06 21:20] VITALS: BP 126/75; PULSE 121
[2019-03-06] MEDS ORDERED: Ketorolac 30 MG/ML SDV IM ONE (21:56)
== END 2019-03-06 22:15 | disposition home or self-care (01) ==
LOC: DL.ED 20:56
DX: S16.1XXA Strain of muscle, fascia and tendon at neck level, initial encounter (principal); E66.9 Obesity, unspecified; Z68.24 Body mass index [BMI] 24.0-24.9, adult; X58.XXXA Exposure to other specified factors, initial encounter
CPT/HCPCS: 72125; 96372; 99283; J1885

== ENCOUNTER 2019-05-08 05:20 | Emergency (ER) | payer OTHER ==
[2019-05-08 05:32] VITALS: BP 121/79; PULSE 93
[2019-05-08] MEDS ORDERED: Ketorolac 30 MG/ML SDV IM ONE (05:37)
--- NOTE | 2019-05-08 05:45 | EDM.PDOC ---
ED HPI GENERAL MEDICAL PROBLEM - General Chief Complaint: Neck Problem Stated Complaint: NECK PAIN Time Seen by Provider: 05/08/19 05:29 Source of Information: Reports: Patient History Limitations: Reports: No Limitations - History of Present Illness INITIAL COMMENTS - FREE TEXT/NARRATIVE: This 43 yo female reports to the ED with neck pain. The patient reports she has had previous neck injuries. The patient reports she felt like the right side of her neck tightened up 4 days ago. Last night, the patient reports she took 2 ibuprofen (200 mg) at about 2300, but had difficulties sleeping due to the discomfort in her neck. The patient reports she had been using Biofreeze which seemed to help, but she ran out. The patient has been seen for similar symptoms in the past. The patient reports she has not followed-up with her primary care facility for any additional treatment or testing. The patient has not tried ice or heat at this time. The patient denies any recent injuries or trauma. 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 Duration: Day(s):, Constant Location: Reports: Neck (posterior) Quality: Reports: Ache, Dull Severity: Moderate Improves with: Reports: None Worsens with: Reports: None Context: Reports: Other Associated Symptoms: Reports: No Other Symptoms Treatments RADIO ENGINEER: Reports: Acetaminophen, NSAIDS Posterior Neck Pain Score (Numeric/FACES): 7 - Related Data Allergies Allergy/AdvReac Type Severity Reaction Status Date / Time No Known Allergies Allergy Verified 05/08/19 05:24 Home Meds: Home Meds . 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 On oxycodone for back and chest pain Psychiatric History: Reports: Anxiety, Bipolar, Depression Endocrine/Metabolic History: Reports: Hyperthyroidism, Obesity/BMI 30+ Hematologic History: Reports: Other (See Below) Other Hematologic History: + hep C, vit D def Immunologic History: Reports: None Oncologic (Cancer) History: Reports: None Dermatologic History: Reports: None - Infectious Disease History Infectious Disease History: Reports: Chicken Pox, Hepatitis C - Past Surgical History Head Surgeries/Procedures: Reports: None Female Surgical History: Reports: LEEP Musculoskeletal Surgical History: Reports: Other (See Below) Other Musculoskeletal Surgeries/Procedures:: foot surgery, elbow surgery Social & Family History - Family History Family Medical History: Noncontributory - Tobacco Use Smoking Status *Q: Current Some Day Smoker Years of Tobacco use: 27 Packs/Tins Daily: 0.1 Second Hand Smoke Exposure: Yes - Caffeine Use Caffeine Use: Reports: Coffee - Recreational Drug Use Recreational Drug Use: Yes Recreational Drug Type: Reports: Marijuana/Hashish Recreational Drug Use Frequency: Binges - Sexual History Sexual History: Reports: Sexually Active - Living Situation & Occupation Living situation: Reports: , with Family ED ROS GENERAL - Review of Systems Review Of Systems: Comprehensive ROS is negative, except as noted in HPI. ED EXAM, UPPER BACK/NECK PAIN - Physical Exam Exam: See Below Exam Limited By: No Limitations General Appearance: Alert, WD/WN Eye Exam: Bilateral Eye: EOMI, Normal Inspection, PERRL Ears Exam: Normal External Exam, Normal Canal, Hearing Grossly Normal, Normal TMs Nose Exam: Normal Inspection, Normal Mucousa, No Blood Throat/Mouth Exam: Normal Inspection, Normal Lips, Normal Teeth, Normal Gums, Normal Oropharynx, Normal Voice, No Airway Compromise Head Exam: Atraumatic, Normocephalic Neck Exam: Painful Range of Motion, Stiff Neck Nexus Criteria: No: Posterior, Midline Cervical Tenderness, Evidence of Intoxication, Altered Level of Consciousness, Focal Neurological Deficit, Painful Distraction Injuries Cardiovascular/Respiratory: Regular Rate, Rhythm, No M/R/G, Normal Peripheral Pulses, No JVD, Normal Breath Sounds, No Respiratory Distress GI/Abdominal: Normal Bowel Sounds, Soft, Non-Tender, No Organomegaly, No Distention, No Abnormal Bruit, No Mass (Female) Exam: Deferred Rectal (Female) Exam: Deferred Back Exam: Normal Inspection, Full Range of Motion, NT Extremities: Normal Inspection, Normal Range of Motion, Non-Tender, No Pedal Edema, Normal Capillary Refill 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, No Motor/Sensory Deficits, Alert, Normal Mood/Affect, Oriented x 3 Psychiatric: Normal Affect, Normal Mood Skin Exam: Normal Color, Warm/Dry Lymphatic: No Adenopathy Course - Vital Signs Last Recorded V/S: Last Vital Signs Temp 36.2 C 05/08/19 05:30 Pulse 93 05/08/19 05:30 Resp 18 05/08/19 05:30 BP 121/79 05/08/19 05:30 Pulse Ox 100 05/08/19 05:30 - Orders/Labs/Meds Meds: Medications Discontinued Medications Generic Name Dose Route Start Last Admin Trade Name Lucía PRN Reason Stop Dose Admin Ketorolac Tromethamine 30 mg 05/08/19 05:37 Toradol IM 05/08/19 05:38 ONETIME ONE Departure - Departure Time of Disposition: 05:47 Disposition: Home, Self-Care 01 Preliminary Cause of *Q: Sepsis & Multi System Organ Failure Clinical Impression: Chronic neck pain - Discharge Information *PRESCRIPTION DRUG MONITORING PROGRAM REVIEWED*: Not Applicable *COPY OF PRESCRIPTION DRUG MONITORING REPORT IN PATIENT TAVO: Not Applicable Instructions: Cervical Sprain, [id number] Care Plan Goals: The patient was advised of the examination results during the visit. With no recent report of trauma or injury, the patient was given an injection of Toradol while in the ED. The patient was discharged with a script for Toradol ( 10 mg) #20 to take 1 by mouth every 6 hours. The patient was encouraged to alternate between ice and heat to the area. If the patient continues to have discomfort, the patient should follow-up with her primary care facility for further evaluation and management.
== END 2019-05-08 06:00 | disposition home or self-care (01) ==
LOC: DL.ED 05:20
DX: M54.2 Cervicalgia (principal); G89.29 Other chronic pain; F17.210 Nicotine dependence, cigarettes, uncomplicated
CPT/HCPCS: 80305; 96372; 99283; J1885

== ENCOUNTER 2019-06-07 05:42 | Emergency (ER) | payer OTHER ==
[2019-06-07 06:21] LABS: ANION GAP 13.6; CHLORIDE,CL 106 mmol/L (101-111); SODIUM,NA 139 mmol/L (135-145)
[2019-06-07 06:23] VITALS: BP 129/71; PULSE 110
[2019-06-07] MEDS ORDERED: Nitrofurantoin Monohydrate/Macrocrystalline 100 MG Cap PO ONE (06:40)
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
== END 2019-06-07 06:56 | disposition home or self-care (01) ==
LOC: DL.ED 05:42
DX: F15.10 Other stimulant abuse, uncomplicated (principal); N39.0 Urinary tract infection, site not specified
CPT/HCPCS: 36415; 80053; 80305; 80320; 81001; 81025; 85025; 87086; 87088; 87186; 99284; A9270; G0480

== ENCOUNTER 2019-10-20 23:56 | Emergency (ER) | payer SELFPAY ==
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
[2019-10-21 00:54] LABS: ANION GAP 12.7 mEq/L (7-13); CHLORIDE,CL 105 mmol/L (98-107); SODIUM,NA 141 mmol/L (136-145)
[2019-10-21] MEDS ORDERED: Acetaminophen 325 MG Tab PO ONE (02:11)
[2019-10-21 02:20] VITALS: BP 131/78; PULSE 88
== END 2019-10-21 03:05 | disposition left against medical advice (07) ==
LOC: DL.ED 23:56
DX: M54.2 Cervicalgia (principal); M54.5 Low back pain; F15.10 Other stimulant abuse, uncomplicated; N39.0 Urinary tract infection, site not specified; R31.9 Hematuria, unspecified; Y04.2XXA Assault by strike against or bumped into by another person, initial encounter
CPT/HCPCS: 36415; 70450; 72125; 72128; 72131; 80053; 80305-QW; 80307; 81001; 85025; 99284-25; A9270-GY

== ENCOUNTER 2020-11-27 11:30 | Emergency (ER) | payer SELFPAY | END 2020-11-27 12:22 | disposition left against medical advice (07) | LOC: DL.ED 11:30 | DX: Z53.21 Procedure and treatment not carried out due to patient leaving prior to being seen by health care provider (principal) ==

== ENCOUNTER 2022-01-16 19:45 | Emergency (ER) | payer MEDICAID ==
[2022-01-16] MEDS ORDERED: Lidocaine 1% 5 ML VIAL INJECT ONE ×2 (20:04→22:00)
[2022-01-16] MEDS ORDERED: Diphtheria,Pertussis(Acell),Tetanus Vaccine 0.5 ML Syringe IM ONE (20:16)
[2022-01-16] MEDS ORDERED: Acetaminophen/oxyCODONE 325-5 MG Tab PO ONE (21:47)
[2022-01-16 21:55] VITALS: BP 116/54; PULSE 92
[2022-01-16] MEDS ORDERED: Bacitracin Oint 1 GM U/D Packet TOP ONE (22:36)
== END 2022-01-16 22:50 | disposition home or self-care (01) ==
LOC: DL.ED 19:45
DX: S67.02XA Crushing injury of left thumb, initial encounter (principal); S61.112A Laceration without foreign body of left thumb with damage to nail, initial encounter; E66.9 Obesity, unspecified; F17.210 Nicotine dependence, cigarettes, uncomplicated; Z68.30 Body mass index [BMI] 30.0-30.9, adult; Z23 Encounter for immunization; W23.1XXA Caught, crushed, jammed, or pinched between stationary objects, initial encounter
CPT/HCPCS: 12001; 73140-FA; 90471; 90715; 99282; 99283-25; A9270-GY

== ENCOUNTER 2022-10-06 15:36 | Emergency (ER) | payer MEDICAID ==
[2022-10-06 16:53] VITALS: BP 126/64; PULSE 97
[2022-10-06] MEDS ORDERED: Sodium Chloride 0.9% 10 ML Syringe FLUSH PRN (17:12)
[2022-10-06] MEDS ORDERED: Ketorolac 30 MG/ML SDV IVPUSH ONE (17:13)
[2022-10-06] MEDS ORDERED: Sodium Chloride 0.9% 1,000 ML IV ONE (17:13)
[2022-10-06] MEDS ORDERED: Acetaminophen/HYDROcodone 325-10 MG Tab PO ONE (17:14)
[2022-10-06] MEDS ORDERED: diphenhydrAMINE 50 MG/ML SDV IVPUSH ONE (17:14)
[2022-10-06 18:08] LABS: BASOPHILS PERCENT AUTO 0.2 % (0.0-1.0); EOSINOPHILS PERCENT AUTO 1.6 % (1.0-3.0); HEMATOCRIT 38.5 % (37.0-47.0); HEMOGLOBIN 12.2 g/dL (12.0-16.0); MEAN CORPUSCULAR HEMOGLOBIN 27.4 pg (27.0-34.0); MEAN CORPUSCULAR HGB CONC 31.7 g/dL (33.0-35.0); MEAN CORPUSCULAR VOLUME 86.5 fL (80-100); MONOCYTES PERCENT AUTO 9.3 % (2-8); NEUTROPHILS PERCENT AUTO 74.9 % (42.2-75.2); PLATELET COUNT,PLT 307 10^3/uL (150-450); RED BLOOD CELL COUNT 4.45 10^6/uL (4.2-5.4); WHITE BLOOD CELL COUNT,WBC 14.6 10^3/uL (5.0-10.0)
[2022-10-06 18:28] LABS: A/G RATIO 0.8; ALBUMIN 3.3 g/dL (3.4-5.0); ANION GAP 11.4 mEq/L (7-13); BILIRUBIN TOTAL 0.4 mg/dL (0.2-1.0); BUN/CREATININE RATIO 18.4 (No establ ref range); C-REACTIVE PROTEIN 7.2 mg/dL (0.0-0.9); CALCIUM 8.1 mg/dL (8.5-10.1); CREATININE 0.87 mg/dL (0.55-1.02); EST CRCL DRUG DOSING (CG) 78.91 mL/min; POTASSIUM,K 3.4 mmol/L (3.5-5.1); PROTEIN TOTAL,TP 7.4 g/dL (6.4-8.2)
[2022-10-06 18:31] LABS: LACTIC ACID 0.8 mmol/L (0.4-2.0)
[2022-10-06] MEDS ORDERED: Take Home: Clindamycin HCl 150 MG, 12 Cap Pack PO ONE (19:14)
[2022-10-06] MEDS ORDERED: Take Home: Doxycycline 100 MG Cap, 4 Cap Pack PO ONE (19:14)
== END 2022-10-06 20:00 | disposition home or self-care (01) ==
LOC: DL.ED 15:36
DX: S61.211A Laceration without foreign body of left index finger without damage to nail, initial encounter (principal); L03.114 Cellulitis of left upper limb; E66.9 Obesity, unspecified; Z68.31 Body mass index [BMI] 31.0-31.9, adult; Z72.0 Tobacco use; W26.0XXA Contact with knife, initial encounter
CPT/HCPCS: 36415; 80053; 83605; 85025; 86140; 87040; 96361; 96365; 96366; 96375; 99283-25; 99284; A9270-GY; J1200; J1885; J3370; J3490; J7030; J7040

== ENCOUNTER 2022-12-31 21:08 | Emergency (ER) | payer MEDICAID ==
[2022-12-31] MEDS ORDERED: Orphenadrine 60 MG/2 ML Inj IM ONE (22:36)
[2022-12-31] MEDS ORDERED: Ketorolac 30 MG/ML SDV IM ONE (22:36)
[2022-12-31] MEDS ORDERED: Take Home: Cyclobenzaprine 10 MG Tab, 4 Tab Pack PO ONE (22:53)
[2022-12-31 23:46] VITALS: BP 127/85; PULSE 89
== END 2022-12-31 23:41 | disposition home or self-care (01) ==
LOC: DL.ED 21:08
DX: S01.511A Laceration without foreign body of lip, initial encounter (principal); S09.22XA Traumatic rupture of left ear drum, initial encounter; E05.90 Thyrotoxicosis, unspecified without thyrotoxic crisis or storm; E66.9 Obesity, unspecified; Z68.30 Body mass index [BMI] 30.0-30.9, adult; Y04.2XXA Assault by strike against or bumped into by another person, initial encounter
CPT/HCPCS: 70450; 70486; 72125; 96372; 99283; 99284; A9270; J1885; J2360

== ENCOUNTER 2023-08-02 21:29 | Emergency (ER) | payer MEDICAID ==
[2023-08-03 00:46] VITALS: BP 146/70; PULSE 98
[2023-08-03] MEDS ORDERED: Polymyxin B/Trimethoprim 10 ML Bottle ONE (01:11)
== END 2023-08-03 01:17 | disposition home or self-care (01) ==
LOC: DL.ED 21:29
DX: H10.9 Unspecified conjunctivitis (principal); E66.9 Obesity, unspecified; Z68.32 Body mass index [BMI] 32.0-32.9, adult
CPT/HCPCS: 99282; 99283; A9270

== ENCOUNTER 2023-12-05 12:55 | Emergency (ER) | payer SELFPAY ==
[2023-12-05 13:27] VITALS: BP 133/82; PULSE 94
[2023-12-05] MEDS: predniSONE 20 MG Tab PO ONE (13:34)
[2023-12-05] MEDS: Loratadine 10 MG Tab PO ONE (13:34)
== END 2023-12-05 13:39 | disposition home or self-care (01) ==
LOC: DL.ED 12:55
DX: L25.5 Unspecified contact dermatitis due to plants, except food (principal)
CPT/HCPCS: 99282; A9270; J7512

== ENCOUNTER 2023-12-07 16:36 | Emergency (ER) | payer SELFPAY ==
[2023-12-07 16:46] VITALS: BP 135/70
[2023-12-07 16:48] VITALS: PULSE 89
[2023-12-07] MEDS: Dexamethasone 4 MG/ML SDV IM ONE (17:05)
== END 2023-12-07 17:10 | disposition home or self-care (01) ==
LOC: DL.ED 16:36
DX: S39.012A Strain of muscle, fascia and tendon of lower back, initial encounter (principal); Z86.16 Personal history of COVID-19; X50.0XXA Overexertion from strenuous movement or load, initial encounter; Y93.89 Activity, other specified
CPT/HCPCS: 96372; 99283; J1100

== ENCOUNTER 2024-03-07 23:18 | Emergency (ER) | payer OTHER ==
[2024-03-07 23:47] VITALS: BP 126/70; PULSE 92
[2024-03-07] MEDS: Acetaminophen 325 MG Tab PO ONE (23:50)
== END 2024-03-08 00:39 | disposition home or self-care (01) ==
LOC: DL.ED 23:18
DX: M79.645 Pain in left finger(s) (principal); E66.9 Obesity, unspecified; Z68.30 Body mass index [BMI] 30.0-30.9, adult; Z86.16 Personal history of COVID-19; F17.210 Nicotine dependence, cigarettes, uncomplicated
CPT/HCPCS: 73140-FA; 99282; 99283; A9270-GY

== ENCOUNTER 2024-03-18 19:25 | Emergency (ER) | payer MEDICAID ==
[2024-03-18 20:02] LABS: APPEARANCE,URINE CLEAR (CLEAR); BILIRUBIN,URINE NEGATIVE (NEGATIVE); COLOR,URINE YELLOW (YELLOW); GLUCOSE,URINE NEGATIVE (NEGATIVE); KETONES,URINE NEGATIVE (NEGATIVE); LEUKOCYTE ESTERASE,URINE NEGATIVE (NEGATIVE); NITRITE,URINE NEGATIVE (NEGATIVE); OCCULT BLOOD,URINE TRACE-INTACT (NEGATIVE); PROTEIN,URINE NEGATIVE (NEGATIVE)
[2024-03-18 20:10] LABS: BACTERIA,URINE MODERATE /HPF (0-FEW/HPF); EPITHELIAL CELLS,URINE FEW /HPF (NOT SEEN); MUCUS,URINE RARE /LPF (NOT SEEN); RBC,URINE 0-5 /HPF (0-5); WBC,URINE 0-5 /HPF (0-5/HPF)
[2024-03-18] MEDS: Ketorolac 30 MG/ML SDV IM ONE (20:36)
[2024-03-18 21:16] VITALS: BP 125/64; PULSE 68
== END 2024-03-18 21:16 | disposition home or self-care (01) ==
LOC: DL.ED 19:25
DX: S39.012A Strain of muscle, fascia and tendon of lower back, initial encounter (principal); M43.07 Spondylolysis, lumbosacral region; M54.42 Lumbago with sciatica, left side; E66.9 Obesity, unspecified; F17.210 Nicotine dependence, cigarettes, uncomplicated; Z68.31 Body mass index [BMI] 31.0-31.9, adult; Y93.B9 Activity, other involving muscle strengthening exercises
CPT/HCPCS: 72100; 81001; 81025; 96372; 99283; J1885

== ENCOUNTER 2024-04-11 17:25 | Emergency (ER) | payer SELFPAY ==
[2024-04-11] MEDS: Bacitracin/Polymyxin B Ophth Oint 3.5 GM Tube EYERT SCH (19:55)
[2024-04-11 20:02] VITALS: BP 110/80; PULSE 82
== END 2024-04-11 20:00 | disposition home or self-care (01) ==
LOC: DL.ED 17:25
DX: H10.9 Unspecified conjunctivitis (principal); E66.9 Obesity, unspecified; Z68.31 Body mass index [BMI] 31.0-31.9, adult
CPT/HCPCS: 99283; A9270

== ENCOUNTER 2024-06-11 11:19 | Emergency (ER) | payer SELFPAY ==
[2024-06-11 11:59] VITALS: BP 123/63; PULSE 88
[2024-06-11] MEDS: Orphenadrine 60 MG/2 ML Inj IM ONE (12:05)
== END 2024-06-11 12:10 | disposition home or self-care (01) ==
LOC: DL.ED 11:19
DX: M62.830 Muscle spasm of back (principal); E66.9 Obesity, unspecified
CPT/HCPCS: 96372; 99283; J2360

== ENCOUNTER 2024-06-13 18:40 | Emergency (ER) | payer SELFPAY ==
[2024-06-13 19:00] VITALS: PULSE 74
[2024-06-13] MEDS: Orphenadrine 60 MG/2 ML Inj IM ONE (19:05)
[2024-06-13] MEDS: Ketorolac 30 MG/ML SDV IM ONE (19:06)
[2024-06-13] MEDS: Lidocaine 5% 700 MG Patch TOP ONE (19:07)
[2024-06-13 20:19] VITALS: BP 101/75
== END 2024-06-13 19:32 | disposition home or self-care (01) ==
LOC: DL.ED 18:40
DX: M62.830 Muscle spasm of back (principal); E66.9 Obesity, unspecified; Z68.31 Body mass index [BMI] 31.0-31.9, adult
CPT/HCPCS: 96372; 99284; A9270-GY; J1885; J2360

== ENCOUNTER 2025-05-09 20:39 | Emergency (ER) | payer SELFPAY ==
[2025-05-09 21:42] VITALS: BP 127/65; PULSE 95
== END 2025-05-09 21:45 | disposition home or self-care (01) ==
LOC: DL.ED 20:39
DX: S09.90XA Unspecified injury of head, initial encounter (principal); W01.0XXA Fall on same level from slipping, tripping and stumbling without subsequent striking against object, initial encounter; Y93.89 Activity, other specified
CPT/HCPCS: 70450; 99283; 99284